=== PATIENT | female | born 1980 | race Caucasian/White ===

== ENCOUNTER → 2016-10-13 | Outpatient (CLI) | payer MEDICAID ==
[~2016-10-13] MED LIST: HYDROCODONE-APA1 TA1 PO; LOSARTAN POTAS100 MG PO; LOSARTAN POTASS1 TA3 PO; LOSARTAN POTASS1 TAB PO; METOPROLOL SUCC25 M1 PO; METOPROLOL25 MG PO; PERCOCET 10 MG1 EACH PO; PROZAC 20MG CAP20 MG PO; TRAZADONE HYDR100 MG PO
[2016-10-15 09:45] LABS: HIV Screen 4th Generation wRfx Non Reactive (Non Reactive); Hep C Virus Ab <0.1 (0.0-0.9)
[2016-10-16 12:37] LABS: Rapid Plasma Reagin, Quant Non Reactive (NonRea<1:1)
== END ==
LOC: LAB 15:26
PROVIDERS: Obstetrics & Gynecology
DX: Z11.3 Encounter for screening for infections with a predominantly sexual mode of transmission (principal)
CPT/HCPCS: G0432